=== PATIENT | male | born 1975 | race African-American/Black ===

== ENCOUNTER 2016-10-28 01:38 | Emergency (ER) | payer OTHER ==
[~2016-10-28] VITALS: Ht 203.2 cm; Wt 102.0 kg
--- NOTE | ~2016-10-28 | CT101 ---
[facility] A Service of [facility] & [facility] RADIOLOGY TEXT RESULTS PATIENT: LUCIEN HOUSTON LOCATION: [facility] : [birth year] UNIT #: [id number] AGE: [address]: Yessenia James SEX: M ORDER DR: [id number] [facility] [address] [place], [place] [address] [id number] E MR#: [id number] Acc #: [id number] NAME: LUCIEN HOUSTON. : 1975 SEX: M STUDY DATE/TIME: 10/28/2016 2:56 UNIT: [facility] ROOM: STUDY DESCRIPTION: CT Maxillofacial Area Wo Cont Attending Physician: Yessenia James Pa-C Ordering Physician: Yessenia James Pa-C Primary Care Physician: Primary Care Physician No MEDICAL IMAGING REPORT This report is preliminary unless electronic signature is present EXAM CT facial bones without contrast HISTORY Fell and hit face today. Pain. TECHNIQUE This CT exam was performed with one or more of the following radiation dose reduction techniques: automatic control, adjustment of mA and/or kV according to patient size, and iterative reconstruction. FINDINGS CT facial bones without contrast demonstrates a comminuted bilateral mandibular neck fractures with anterior dislocation of the temporomandibular joints bilaterally. Comminuted longitudinal oblique fracture of the anterior left mandibular body with 3 mm separation of the fracture fragments. The fracture extends between the left lower first and second incisors. Several small opaque foreign bodies in the soft tissues of the anterior chin. Moderate mucosal thickening in the right sphenoid sinus and mild mucosal thickening in ethmoid air cells bilaterally and retention cysts in the inferior maxillary sinuses, measuring up to approximately 1.5 cm on the right. Large oval laminated sialolith medial to the right mandibular angle, measuring approximately 2.4 cm x 0.8 cm. IMPRESSION 1. Comminuted fractures of the bilateral mandibular neck with anterior dislocation of the temporomandibular joints. Close to 40 degrees medial angulation of the mandibular heads bilaterally. 2. Longitudinal oblique comminuted fracture of the anterior left mandibular body with 3 mm separation of the fracture fragments. 3. Large oval sialolith on the right medial to the right mandibular angle. [facility]. [facility] A Service of [facility] & [facility] RADIOLOGY TEXT RESULTS PATIENT: LUCIEN HOUSTON [id number] : [birth year] UNIT #: [id number] AGE: [address]: Yessenia James SEX: M ORDER DR: Dictated by... Abram Moses M.D. THIS IS AN ELECTRONICALLY VERIFIED REPORT Abram Moses M.D. at 10/29/2016 6:31 AM DFBuddy/derick TD: 10/29/2016 04:42 JOB #: [id number] MEDICAL IMAGING REPORT Page 1 of 1 COPY
--- NOTE | ~2016-10-28 | CT71 ---
[facility] A Service of [facility] RADIOLOGY TEXT RESULTS PATIENT: LUCIEN HOUSTON LOCATION: [facility] : 77 UNIT #: [id number] AGE: [address]: Yessenia James SEX: M ORDER DR: [id number] [facility] [address] [place], [place] [address] [id number] E MR#: [id number] Acc #: [id number] NAME: LUCIEN HOUSTON. : 1975 SEX: M STUDY DATE/TIME: 10/28/2016 2:52 UNIT: [facility] ROOM: STUDY DESCRIPTION: CT Head Wo Contrast Attending Physician: Yessenia James Pa-C Ordering Physician: Yessenia James Pa-C Primary Care Physician: Primary Care Physician No MEDICAL IMAGING REPORT This report is preliminary unless electronic signature is present EXAM CT brain without contrast HISTORY Fell and hit face today. Pain in head and neck and face. TECHNIQUE This CT exam was performed with one or more of the following radiation dose reduction techniques: automatic control, adjustment of mA and/or kV according to patient size, and iterative reconstruction. FINDINGS CT brain without contrast demonstrates no intracranial hemorrhage, mass or edema. No midline shift or ventricular dilatation or extraaxial fluid collection. Mild chronic ischemic changes in the deep white matter bilaterally. Bilateral temporal mandibular joint dislocation with partly visualized fractures of the right mandibular neck and the left mandibular head. IMPRESSION 1. No acute intracranial findings. 2. Bilateral temporal mandibular joint dislocation with partly visualized fractures of the right mandibular neck and left mandibular head. Dictated by... Abram Moses M.D. THIS IS AN ELECTRONICALLY VERIFIED REPORT Abram Moses M.D. at 10/29/2016 6:31 AM DFL/rnr [facility] A Service of [facility] RADIOLOGY TEXT RESULTS PATIENT: LUCIEN HOUSTON LOCATION: [facility] : 77 UNIT #: [id number] AGE: [address]: Yessenia James SEX: M ORDER DR: TD: 10/29/2016 04:34 JOB #: [id number] MEDICAL IMAGING REPORT Page 1 of 1 COPY
--- NOTE | ~2016-10-28 | CT52 ---
[facility] A Service of [facility] RADIOLOGY TEXT RESULTS PATIENT: LUCIEN HOUSTON LOCATION: [facility] : 77 UNIT #: [id number] AGE: [address]: Yessenia James SEX: M ORDER DR: [id number] [facility] [address] [place], [place] [address] [id number] E MR#: [id number] Acc #: [id number] NAME: LUCIEN HOUSTON. : 1975 SEX: M STUDY DATE/TIME: 10/28/2016 2:58 UNIT: [facility] ROOM: STUDY DESCRIPTION: CT Cervical Spine Wo Cont Attending Physician: Yessenia James Pa-C Ordering Physician: Yessenia James Pa-C Primary Care Physician: Primary Care Physician No MEDICAL IMAGING REPORT This report is preliminary unless electronic signature is present EXAM CT cervical spine without contrast HISTORY Neck pain after fall today. TECHNIQUE This CT exam was performed with one or more of the following radiation dose reduction techniques: automatic control, adjustment of mA and/or kV according to patient size, and iterative reconstruction. FINDINGS CT cervical spine demonstrates minimal disc space narrowing at C5-C6 with small anterior and posterior marginal osteophytes at this level. No cervical subluxation. No cervical fracture or precervical soft tissue swelling. Fractures of the mandibular neck bilaterally with tiny comminuted adjacent fracture fragments. There is also a partly visualized oblique fracture of the anterior left mandibular body. Bilateral anterior temporal mandibular joint dislocation. IMPRESSION 1. No acute findings in the cervical spine. No cervical spine fracture. Mild degenerative and hypertrophic changes at C5-C6. 2. Fractures of the bilateral mandibular neck with anterior dislocation of the temporomandibular joints bilaterally. Partly visualized oblique fracture of the anterior left mandibular body. Dictated by... Abrma Moses M.D. THIS IS AN ELECTRONICALLY VERIFIED REPORT Abram Moses M.D. at 10/29/2016 6:31 AM [facility] A Service of [facility] RADIOLOGY TEXT RESULTS PATIENT: LUCIEN HOUSTON [id number] [birth year] UNIT #: [id number] AGE: [address]: Yessenia James SEX: M ORDER DR: ABBI/rnr TD: 10/29/2016 04:37 JOB #: [id number] MEDICAL IMAGING REPORT Page 1 of 1 COPY
== END 2016-10-28 06:34 | disposition short-term general hospital (02) ==
LOC: CED 01:38
DX: S02.602A Fracture of unspecified part of body of left mandible, initial encounter for closed fracture (principal); S02.651A Fracture of angle of right mandible, initial encounter for closed fracture; S02.69XA Fracture of mandible of other specified site, initial encounter for closed fracture; S01.81XA Laceration without foreign body of other part of head, initial encounter; G35 Multiple sclerosis; Z91.81 History of falling; W18.30XA Fall on same level, unspecified, initial encounter; Y92.009 Unspecified place in unspecified non-institutional (private) residence as the place of occurrence of the external cause
CPT/HCPCS: 70450; 70486; 72125; 96374; 96376; 99284; J1170; J2405